=== PATIENT | female | born 2005 | race Two or more races ===

== ENCOUNTER 2024-01-24 15:35 | Emergency (ER) | payer MEDICAID, OTHER ==
[~2024-01-24] VITALS: Ht 167.6 cm; Wt 48.5 kg
[2024-01-24 16:48] VITALS: PULSE 73; RESP 16; O2SAT 99
[2024-01-24 17:20] LABS: Basophils # (auto) 0 10 ^3/uL (0-0.2); Basophils % (auto) 0.4 % (0.0-2.0); Monocytes # (auto) 0.5 10 ^3/uL (0-1.3)
[2024-01-24 17:22] LABS: Eosinophils # (auto) 0.2 10 ^3/uL (0-0.8); Eosinophils % (auto) 3.8 % (0.0-7.0); Hematocrit 32.7 % (36.0-46.0); Hemoglobin 10.8 g/dL (12.2-16.2); Lymphocytes # (auto) 1.7 10 ^3/uL (0.4-5.4); Lymphocytes % (auto) 25.8 % (10.0-50.0); Mean Corpuscular Hemoglobin 25.3 pg (28.0-32.0); Mean Corpuscular Hgb Conc. 33.2 g/dL (32.0-36.0); Mean Corpuscular Volume 76.4 fL (80.0-100.0); Monocytes % (auto) 8.2 % (0.0-12.0); Neutrophils % (auto) 61.8 % (37.0-80.0); Nucleated Red Blood Cells % 0.1 %; Red Blood Cells 4.28 10^6/uL (4.0-5.20); Red Cell Distribution Width 20.4 % (11.8-14.3); White Blood Cell 6.4 10^3/uL (4.4-10.8)
[2024-01-24 17:25] LABS: Urine Bacteria FEW /hpf (None Seen); Urine Blood Negative /uL (Negative); Urine Clarity Turbid (Clear); Urine Color Yellow (Yellow); Urine Mucus MODERATE (None Seen); Urine Protein, UAD 1+ (Negative); Urine Specific Gravity 1.032 (1.001-1.035); Urine Urobilinogen Normal (Negative); Urine WBC 2 /hpf (0 - 5)
[2024-01-24] MEDS: SODIUM CHLORIDE 0.9% 1,000 ML IVB ONE (17:29)
[2024-01-24] MEDS: MAALOX PLUS or MAALOX 30 ML PO ONE (17:35)
[2024-01-24 17:41] LABS: Albumin 4.3 g/dL (3.2-4.8); Alkaline Phosphatase 54 U/L (46-116); Anion Gap 9 (5-15); Aspartate Aminotransferase 8 U/L (13-40); Calcium 8.9 mg/dL (8.7-10.4); Carbon Dioxide 18 mmol/L (20-30); Chloride 108 mmol/L (98-107); Glucose 80 mg/dL (74-106); Potassium 3.4 mmol/L (3.5-5.1); Sodium 135 mmol/L (136-145)
[2024-01-24 17:42] LABS: Bilirubin, Total 0.4 mg/dL (0.2-1.0); Total Protein 6.9 g/dL (5.7-8.2)
[2024-01-24] MEDS: ONDANSETRON HCL 4 MG/2 ML VIAL IV ONE (17:48)
[2024-01-24] MEDS: diphenhdrAMINE HCL 50 MG/1 ML VL IV ONE (17:48)
[2024-01-24] MEDS: METOCLOPRAMIDE HCL 5MG/ml INJ 2ml VIAL IV ONE (17:49)
[2024-01-24] MEDS: DEXTROSE 10% 250 ML IV ONE (18:12)
[2024-01-24 18:29] LABS: Alanine Aminotransferase < 9 U/L (7-40); BUN/Creatinine Ratio 10.9 (10.0-20.0); Blood Urea Nitrogen < 5 mg/dL (9-23)
[2024-01-24 19:57] VITALS: BP 124/68; PULSE 66; RESP 18; TEMP 98; O2SAT 100
== END 2024-01-24 20:01 | disposition home or self-care (01) ==
LOC: ER 15:35
DX: O41.8X10 Other specified disorders of amniotic fluid and membranes, first trimester, not applicable or unspecified (principal); R10.2 Pelvic and perineal pain; O21.8 Other vomiting complicating pregnancy; Z3A.12 12 weeks gestation of pregnancy; Z79.899 Other long term (current) drug therapy
CPT/HCPCS: 36415; 76801; 80053; 81001; 83036; 84443; 84702; 85025; 86900; 86901; 96361; 96374; 96375; 99285; J1200; J2405; J2765; J7030

== ENCOUNTER 2024-03-10 22:27 | Emergency (ER) | payer MEDICAID ==
[~2024-03-10] VITALS: Ht 167.6 cm; Wt 50.4 kg
[2024-03-10 23:15] LABS: Basophils # (auto) 0 10 ^3/uL (0-0.2); Basophils % (auto) 0.4 % (0.0-2.0); Eosinophils # (auto) 0.3 10 ^3/uL (0-0.8); Eosinophils % (auto) 3.4 % (0.0-7.0); Hematocrit 33.8 % (36.0-46.0); Hemoglobin 11.8 g/dL (12.2-16.2); Lymphocytes # (auto) 1.9 10 ^3/uL (0.4-5.4); Mean Corpuscular Hemoglobin 29.2 pg (28.0-32.0); Mean Corpuscular Hgb Conc. 34.9 g/dL (32.0-36.0); Mean Corpuscular Volume 83.7 fL (80.0-100.0); Monocytes # (auto) 0.5 10 ^3/uL (0-1.3); Monocytes % (auto) 6.4 % (0.0-12.0); Neutrophils # (auto) 5.3 10 ^3/uL (1.6-8.6); Neutrophils % (auto) 65.8 % (37.0-80.0); Platelet Count (auto) 191 10^3/uL (140-450); Red Blood Cells 4.04 10^6/uL (4.0-5.20); White Blood Cell 8.1 10^3/uL (4.4-10.8)
[2024-03-10 23:24] LABS: Chloride 106 mmol/L (98-107); Potassium 3.3 mmol/L (3.5-5.1); Sodium 135 mmol/L (136-145)
[2024-03-10 23:25] LABS: Anion Gap 9 (5-15); Calcium 9.6 mg/dL (8.7-10.4); Carbon Dioxide 20 mmol/L (20-30)
[2024-03-10 23:30] LABS: Glucose 98 mg/dL (74-106)
[2024-03-10 23:34] LABS: Urine Bacteria FEW /hpf (None Seen); Urine Blood Negative /uL (Negative); Urine Clarity Clear (Clear); Urine Color Light-Yellow (Yellow); Urine Protein, UAD Negative (Negative); Urine Specific Gravity 1.004 (1.001-1.035); Urine Urobilinogen Normal (Negative); Urine WBC 1 /hpf (0 - 5); Urine pH 6.5 (5.0-9.0)
[2024-03-10 23:34] LABS: BUN/Creatinine Ratio 9.6 (10.0-20.0); Blood Urea Nitrogen < 5 mg/dL (9-23)
[2024-03-11] MEDS ORDERED: NITR-87 PO (00:58)
[2024-03-11 01:55] VITALS: BP 119/77; TEMP 98.3
[2024-03-11 01:59] VITALS: PULSE 75; RESP 20; O2SAT 99
== END 2024-03-11 02:01 | disposition home or self-care (01) ==
LOC: ER 22:27
DX: O23.42 Unspecified infection of urinary tract in pregnancy, second trimester (principal); R10.2 Pelvic and perineal pain; N39.0 Urinary tract infection, site not specified; Z3A.19 19 weeks gestation of pregnancy
CPT/HCPCS: 36415; 76805; 80048; 81001; 84702; 85025

== ENCOUNTER 2024-06-01 09:11 | Observation (INO) | payer MEDICAID ==
[~2024-06-01] VITALS: Ht 167.6 cm; Wt 60.3 kg
[~2024-06-01 09:11] MED LIST: NITR-87 PO
[2024-06-01] MEDS ORDERED: ONDANSETRON HCL 4 MG/2 ML VIAL IM ONE (10:45)
[2024-06-01] MEDS: LACTATED RINGER'S 1,000 ML IV ONE (11:10)
[2024-06-01] MEDS: TERBUTALINE SULFATE 1 MG/ML 1ML VIAL SC SCH (11:23)
[2024-06-01] MEDS: ONDANSETRON HCL 4 MG/2 ML VIAL IV ONE (11:23)
== END 2024-06-01 12:32 | disposition home or self-care (01) ==
LOC: LDRP 09:11
PROVIDERS: ADMIT Obstetrics & Gynecology; ATTEND Obstetrics & Gynecology
DX: O21.2 Late vomiting of pregnancy (principal); O26.893 Other specified pregnancy related conditions, third trimester; R19.7 Diarrhea, unspecified; Z79.899 Other long term (current) drug therapy; Z98.890 Other specified postprocedural states; Z3A.30 30 weeks gestation of pregnancy
CPT/HCPCS: 59025; 81002; 94760; 96361; 96372; 96374; G0378; J3105; 96360; J2405